=== PATIENT | female | born 2005 | race Caucasian/White ===

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

== ENCOUNTER → 2023-02-05 | Outpatient (CLI) | payer OTHER ==
--- NOTE | 2023-02-05 15:23 | FL ---
EXAMINATION TYPE: FL UGI air w small bowel DATE OF EXAM: 02/05/2023 COMPARISON: Prior CT March 06, 2022 HISTORY: Stomachache and diarrhea for years. History of prior endoscopy. TECHNIQUE: A double contrast UGI study is performed with small bowel follow through. A total of 53 seconds of fluoroscopic time was utilized during procedure and 35 images obtained. Total dose area p roduct (DAP) in uGy*m?, mGy*cm? (or similar): n/a. FINDINGS: Crane Engineer image of the abdomen shows no gross abnormality. The esophagus shows normal motility and emptying into the stomach. No proximal diverticulum. No evid ence of fixed hiatal hernia or stricture noted. The stomach shows satisfactory distensibility, peristalsis, and mucosal folds. No evidence of any ma ss or ulcer disease. No significant esophageal reflux was seen during real time performance of this study. The duodenal bulb and sweep are unremarkable. The small bowel study shows normal transit to the colon in less than 45 minutes. There is normal muc osal fold pattern throughout the small bowel. There is no evidence of any stricture or filling defec t noted. The terminal ileum is spotted and appears within normal limits. IMPRESSION: Normal upper GI study and small bowel follow through.
== END | disposition home or self-care (01) ==
LOC: RADFLMAIN 08:59
PROVIDERS: ATTEND Internal Medicine Gastroenterology
DX: K52.9 Noninfective gastroenteritis and colitis, unspecified (principal)
CPT/HCPCS: 74240; 74248